=== PATIENT | female | born 1975 | race Asian ===

== ENCOUNTER 2018-12-30 22:16 | Emergency (ER) | payer OTHER, MEDICAID, SELFPAY ==
[2018-12-30 22:26] VITALS: BP 108/79; PULSE 79; RESP 14; TEMP 36.6; O2SAT 99; BMI 21.9
--- NOTE | 2018-12-30 22:26 | ED.SKABFB ---
HPI - Skin/Abscess/Foreign Bdy General Chief complaint: Skin/Abscess/Foreign Body Stated complaint: ROMERO IS OUT OF CONTROL Time Seen by Provider: 12/30/18 22:26 Source: patient Mode of arrival: ambulatory Limitations: no limitations History of Present Illness HPI narrative: 43-year-old female with a known history of eczema and also psoriasis here for evaluation of worsening of this. She states that she has been on prednisone in the past. She is not currently on any daily medications. She has been under the care of Dermatology in the past. She is using it daily moisturizer. She states that her symptoms worsened around the time of her menstrual cycle. She states that during her last menstrual cycle the symptoms worsen but that did not improve. Symptoms mostly on her back and upper extremities. Related Data Previous Rx's Medication Instructions Recorded prednisone 60 mg PO DAILY #17 tab 12/30/18 Allergies Allergy/AdvReac Type Severity Reaction Status Date / Time cephalexin [From Keflex] Allergy Verified 12/30/18 22:26 Review of Systems Constitutional Denies fever(s) and Denies headache(s) ENT Ears, Nose, Mouth, and Throat: Denies vertigo and Denies headache(s) Cardiovascular Denies dyspnea Respiratory Denies dyspnea Gastrointestinal Gastrointestinal: Denies abdominal pain Musculoskeletal Denies myalgias and Denies arthralgias Integumentary/Breasts Reports dry skin, Reports lesions, Reports rash and Reports skin pain Neurologic Denies vertigo and Denies headache(s) Hematologic/Lymphatic Denies easy bruising Allergic/Immunologic Denies urticaria PFSH Medical History Eczema (Acute) Social History lives independently: Yes Social History lives independently: Yes Exam Initial Vital Signs Initial Vital Signs: Vital Signs Temperature 97.9 F 12/30/18 22:26 Pulse Rate 79 12/30/18 22:26 Respiratory Rate 14 12/30/18 22:26 Blood Pressure 108/79 12/30/18 22:26 Pulse Oximetry 99 12/30/18 22:26 Const General: cooperative, comfortable, well developed, well groomed and No acute distress Resp Effort & Inspection: normal respiratory effort Cardio Rate: regular rate Skin Other: Patient with patches area of dry skin and also nodules. No redness. No erythema. No drainage. Neuro General: alert, awake and oriented x3 Extrem General: normal to inspection and capillary refill normal Course Orders Ordered: Discontinued Medications Prednisone (Deltasone) 60 mg PO NOW ONE Stop: 12/30/18 22:32 Last Admin: 12/30/18 22:33 Dose: 60 mg Vital Signs - 8 hr 12/30/18 22:26 Temperature 97.9 F Pulse Rate 79 Respiratory Rate 14 Blood Pressure 108/79 Pulse Oximetry 99 MDM - Skin/Abscess/Foreign Bdy MDM Narrative Medical decision making narrative: Patient's history and physical exam was consistent with her history of psoriasis and eczema. She states that steroids have worked for her in the past. She was given a dose of steroids here in the emergency department was sent home with prescription. No indication for antibiotics. She was given return precautions and follow-up instructions. She expressed understanding and agreement with plan. Discharge Plan Departure Patient Disposition: Home Clinical Impression: Eczema Qualifiers: Eczema type: unspecified Qualified Code(s): L30.9 - Dermatitis, unspecified Discharge Date/Time: 12/30/18 22:40 Interventions: ED Discharge Assessment Last Done: 12/30/18 22:39 Instructions: Eczema (Alternative Therapy), Eczema Activity Restrictions/Additional Instructions: Take the antibiotics as directed. Contact your primary doctor for follow-up. Return to the emergency department for any new or worsening symptoms Prescriptions: New prednisone 20 mg tablet 60 mg PO DAILY Qty: 17 RF: 0
--- NOTE | 2018-12-30 22:27 | PC.NURSE ---
Patient has chronic skin problems. States she had one biopsied and it was psoriasis and another says it is eczema. Pt has scars, and lesions on back and both arms. Pt rubbing arms and states they do itch. Has tried OTC remedies but nothing is helping.
[2018-12-30] MEDS: predniSONE 20 MG TABLET 60 MG PO (22:33)
== END 2018-12-30 22:40 | disposition home or self-care (01) ==
PROVIDERS: Emergency Provider Emergency Medicine
DX: L30.9 Dermatitis, unspecified (principal)
CPT/HCPCS: 99282; 99283

== ENCOUNTER 2019-02-02 01:00 | Emergency (ER) | payer OTHER, MEDICAID, SELFPAY ==
[2019-02-02 01:07] VITALS: BP 108/58; PULSE 72; RESP 16; TEMP 36.6; O2SAT 99; BMI 21.2
--- NOTE | 2019-02-02 01:43 | ED.ALLEREA ---
HPI - Allergic Reaction General Chief complaint: Allergic Reaction Stated complaint: rash Time Seen by Provider: 02/02/19 01:43 Source: patient Mode of arrival: ambulatory Limitations: no limitations History of Present Illness HPI narrative: Patient is a 43-year-old female with history of psoriasis and eczema presenting with a flare-up over the last 2 days. It is mostly on her back and arms. He was here in December given a prescription of prednisone. She says that has helped a lot. She actually has an appointment with Dermatology but can't get in until March. She has multiple steroid creams which she uses however when it started flaring up like this does typically do not work and she needs something stronger. She has not had any fever. Symptoms: rash and itching Severity: moderate Related Data Previous Rx's Medication Instructions Recorded prednisone 60 mg PO DAILY #17 tab 12/30/18 prednisone 40 mg PO DAILY #10 tab 02/02/19 Allergies Allergy/AdvReac Type Severity Reaction Status Date / Time cephalexin [From Keflex] Allergy Verified 12/30/18 22:26 Review of Systems Review of Systems GENERAL: Denies chills, fatigue, malaise, fever, sweats, travel HEENT: Denies sinus pain, ear pain, sore throat, difficulty swallowing, neck pain RESPIRATORY: Denies dyspnea, cough, wheezing, hemoptysis, sputum. CARDIOVASCULAR: Denies chest pain, palpitations, orthopnea, edema GASTROINTESTINAL: Denies nausea, vomiting, abdominal pain, diarrhea, constipation, melena. : Denies dysuria, frequency, incontinence, hematuria, urinary retention, flank pain. MUSCULOSKELETAL: Denies weakness, joint pain, or bony pain SKIN: See HPI NEUROLOGIC: Denies weakness, dizziness, headache, numbness, change in speech, confusion PSYCHIATRIC: No concerning psychosocial issues. 12 point review of systems is negative except for those stated above and HPI [facility] Medical History Eczema (Acute) Social History lives independently: Yes Smoking Status: Never smoker Social History lives independently: Yes Smoking Status: Never smoker Exam Initial Vital Signs Initial Vital Signs: Vital Signs Temperature 97.9 F 02/02/19 01:07 Pulse Rate 72 02/02/19 01:07 Respiratory Rate 16 02/02/19 01:07 Blood Pressure 108/58 L 02/02/19 01:07 Pulse Oximetry 99 02/02/19 01:07 GENERAL: Well-appearing, well-nourished and in no acute distress. CARDIOVASCULAR: peripheral pulses in tact, cap refill <2 sec RESPIRATORY: No respiratory distress, speaks in full sentences without difficulty EXTREMITIES: Normal range of motion, no clubbing or edema. Neurovascularly intact NEUROLOGICAL: Cranial nerves II through XII grossly intact. Normal gait and speech. SKIN: Multiple areas on the arms and back diffusely with plaque like areas. Dry skin nodules. No erythema no redness no drainage no fluctuation. Course Vital Signs - 8 hr 02/02/19 01:07 Temperature 97.9 F Pulse Rate 72 Respiratory Rate 16 Blood Pressure 108/58 L Pulse Oximetry 99 MDM - Allergic Reaction MDM Narrative Medical decision making narrative: Hermila do not see any sign of infection this time. No indication for antibiotics. She is on 60 mg of prednisone previously. Will try a smaller dose this time see if helps. She has piedra. It is pretty diffuse all over her back and would likely require oral steroids at this. Discharge Plan Departure Patient Disposition: Home Clinical Impression: Eczema Qualifiers: Eczema type: unspecified Qualified Code(s): L30.9 - Dermatitis, unspecified Discharge Date/Time: 02/02/19 02:04 Interventions: ED Discharge Assessment Last Done: 02/02/19 02:04 Instructions: Eczema, DI for Atopic Dermatitis - Adult Activity Restrictions/Additional Instructions: *You have been diagnosed with eczema *What to do: Need to see dermatology *Continue to take medications as directed Prednisone 40 mg once a day for 5 days *Follow up with your primary care provider in 2-3 days *Return to ER if you should have any new, worsening or concerning symptoms Prescriptions: New prednisone 20 mg tablet 40 mg PO DAILY Qty: 10 RF: 0 No Action prednisone 20 mg tablet 60 mg PO DAILY Qty: 17 RF: 0
--- NOTE | 2019-02-02 01:50 | ED_ITS ---
HPI - Allergic Reaction General Chief complaint: Allergic Reaction Stated complaint: rash Time Seen by Provider: 02/02/19 01:43 Source: patient Mode of arrival: ambulatory Limitations: no limitations History of Present Illness HPI narrative: Patient is a 43-year-old female with history of psoriasis and eczema presenting with a flare-up over the last 2 days. It is mostly on her back and arms. He was here in December given a prescription of prednisone. She says that has helped a lot. She actually has an appointment with Dermatology but can't get in until March. She has multiple steroid creams which she uses how ever when it started flaring up like this does typically do not work and she needs something stronger. She has not had any fever. Symptoms: rash and itching Severity: moderate Related Data Previous Rx's Medication Instructions Recorded prednisone 60 mg PO DAILY #17 tab 12/30/18 prednisone 40 mg PO DAILY #10 tab 02/02/19 Allergies Allergy/AdvReac Type Severity Reaction Status Date / Time cephalexin [From Keflex] Allergy Verified 12/30/18 22:26 Review of Systems Review of Systems GENERAL: Denies chills, fatigue, malaise, fever, sweats, travel HEENT: Denies sinus pain, ear pain, sore throat, difficulty swallowing, neck pain RESPIRATORY: Denies dyspnea, cough, wheezing, hemoptysis, sputum. CARDIOVASCULAR: Denies chest pain, palpitations, orthopnea, edema GASTROINTESTINAL: Denies nausea, vomiting, abdominal pain, diarrhea, constipation, melena. : Denies dysuria, frequency, incontinence, hematuria, urinary retention, flank pain. MUSCULOSKELETAL: Denies weakness, joint pain, or bony pain SKIN: See HPI NEUROLOGIC: Denies weakness, dizziness, headache, numbness, change in speech, confusion PSYCHIATRIC: No concerning psychosocial issues. 12 point review of systems is negative except for those stated above and HPI [facility] Medical History Eczema (Acute) Social History lives independently: Yes Smoking Status: Never smoker Social History lives independently: Yes Smoking Status: Never smoker Exam Initial Vital Signs Initial Vital Signs: Vital Signs Temperature 97.9 F 02/02/19 01:07 Pulse Rate 72 05/29/19 01:07 Respiratory Rate 16 02/02/19 01:07 Blood Pressure 108/58 L 02/02/19 01:07 Pulse Oximetry 99 02/02/19 01:07 GENERAL: Well-appearing, well-nourished and in no acute distress. CARDIOVASCULAR: peripheral pulses in tact, cap refill <2 sec RESPIRATORY: No respiratory distress, speaks in full sentences without difficulty EXTREMITIES: Normal range of motion, no clubbing or edema. Neurovascularly intact NEUROLOGICAL: Cranial nerves II through XII grossly intact. Normal gait and speech. SKIN: Multiple areas on the arms and back diffusely with plaque like areas. Dry skin nodules. No erythema no redness no drainage no fluctuation. Course Vital Signs - 8 hr 02/02/19 01:07 Temperature 97.9 F Pulse Rate 72 Respiratory Rate 16 Blood Pressure 108/58 L Pulse Oximetry 99 MDM - Allergic Reaction MDM Narrative Medical decision making narrative: Hermila do not see any sign of infection this time. No indication for antibiotics. She is on 60 mg of prednisone previously. Will try a smaller dose this time see if helps. She has piedra. It is pretty diffuse all over her back and would likely require oral steroids at this. Discharge Plan Departure Patient Disposition: Home Clinical Impression: Eczema Qualifiers: Eczema type: unspecified Qualified Code(s): L30.9 - Dermatitis, unspecified Discharge Date/Time: 02/02/19 02:04 Interventions: ED Discharge Assessment Last Done: 02/02/19 02:04 Instructions: Eczema, DI for Atopic Dermatitis - Adult Activity Restrictions/Additional Instructions: *You have been diagnosed with eczema *What to do: Need to see dermatology *Continue to take medications as directed Prednisone 40 mg once a day for 5 days *Follow up with your primary care provider in 2-3 days *Return to ER if you should have any new, worsening or concerning symptoms Prescriptions: New prednisone 20 mg tablet 40 mg PO DAILY Qty: 10 RF: 0 No Action prednisone 20 mg tablet 60 mg PO DAILY Qty: 17 RF: 0
== END 2019-02-02 02:04 | disposition home or self-care (01) ==
PROVIDERS: Emergency Provider Emergency Medicine
DX: L30.9 Dermatitis, unspecified (principal)
CPT/HCPCS: 99282; 99283